=== PATIENT | female | born 1950 | race Caucasian/White ===

== ENCOUNTER 2022-05-16 15:30 | Outpatient (RCR) | payer MEDICARE, SELFPAY | END 2022-05-16 15:35 | disposition home or self-care (01) | LOC: PT 15:30 | PROVIDERS: Visit Provider Family Medicine | DX: S81.802A Unspecified open wound, left lower leg, initial encounter (principal); S81.801A Unspecified open wound, right lower leg, initial encounter; L89.159 Pressure ulcer of sacral region, unspecified stage; R60.0 Localized edema | CPT/HCPCS: 97163; 97597 ==